=== PATIENT | male | born 1960 | race Caucasian/White ===

== ENCOUNTER 2024-06-01 23:17 | Emergency (ER) | payer MEDICARE, MEDICAID, SELFPAY ==
[2024-06-01 23:30] LABS: Glucose Point of Care 331 mg/dl (65-105)
--- NOTE | 2024-06-01 23:35 | ED.GENADULT ---
HPI - General Adult General Chief complaint: Psychiatric Symptoms Stated complaint: Confused Source: patient Mode of arrival: ambulatory Limitations: no limitations History of Present Illness HPI narrative: patient is a 63-year-old white male brought in by EMS who stated that they were called by police. Patient stated he went to his [facility] house [facility] whose Maryellen was worried about him because he had told her he was the November [facility] of and that he had [facility] [employer] tomorrow. He told her that all he had to do is write his name as the right and palate to beam air about all May 18. The police subsequently called EMS who pick patient up in the street in [place], [place] patient agreed to come in to be evaluated denies any paranoia denies drinking alcohol illicit drugs. He says he is in perfect health does not have any medical problems except for some psoriasis. His blood sugar was high by EMS he said that is because he went to the bakery and had pastries today. Denies any cough fever sore throat runny nose dizziness or lightheadedness swelling lumps or bumps problems walking talking seeing or hearing. Denies any homicidal or suicidal ideation or depression. He says a little anxious kids he wants to get out of this more emergency room and does not want stay here and wants to go home and does not want any testing done. Says he lives with his Rebekah the past year. Related Data Home Medications Medication Instructions Recorded Confirmed No Home Medications 06/01/24 06/01/24 Allergies Allergy/AdvReac Type Severity Reaction Status Date / Time No Known Allergies Allergy Verified 06/01/24 23:24 Review of Systems Review of Systems: All systems reviewed & are unremarkable except as noted in HPI and below PMFSH Comments smokes did denies alcohol or illicit drug use. Lives with his Rebekah Exam Narrative: White male patient with no apparent distress.? Head normocephalic, atraumatic.? Eyes conjunctiva pink sclera nonicteric.? Extraocular movements are intact.? Ears externally normal.? Oropharynx is clear with moist mucous membranes without exudates.? Neck is supple nontender no lymphadenopathy.? Back is nontender.? Lungs are clear.? Heart is regular rate and rhythm without murmurs gallops or rubs.? Chest wall nontender. Abdomen is soft and nontender no hepatosplenomegaly or masses no CVA tenderness no abdominal bruits.? Extremities no cyanosis clubbing or edema.? Skin is warm and dry without lesions.? the patient does have psoriatic plaques extremities. Neurological patient is alert and oriented x4.? Motor and sensory grossly intact.? Gait is normal. Medical Decision Making MDM Narrative Medical decision making narrative: Patient placed in room: room 5 ? History and physical was performed. patient states he does not want to be here and wants to go home does not want any testing done. He says he has not depressed not thinking about hurting anyone or himself he says he is anxious and just wants to get out of the emergency department. Accu-Chek was 363 Independent Historian: EMS External Source Review: Differential Dx includes but not limited to: Homicidal or suicidal ideation Medications were Reviewed: patient states takes no medications Medications given: none Independently Interpreted by me: Shared decision Making: Social Situation Impacting Patients Care: Discussed with Dr. RAPHAEL DIAGNOSIS: delusion disorder, hyperglycemia DISPOSITION : discharge home police that originally picked him up is going to drop him back to his car. CONDITION AT DISCHARGE: stable Lab Data Labs: Lab Results 06/01/24 Range/Units 23:28 POC Capillary Glucose 331 H (65-105) mg/dl Discharge Plan Discharge Clinical Impression: Delusional disorder, Hyperglycemia Patient Disposition: Home, Self-Care Condition: Stable Instructions: Nondiabetic Hyperglycemia (ED) Additional Instructions: return any problems or concerns. With your primary care provider from local list given Prescriptions: No Action No Home Medications Follow-up/Referrals: Henrietta,MD Blake [Primary Care Provider] - Time of Disposition: 23:58
[2024-06-01 23:50] VITALS: BP 190/110; PULSE 81; RESP 18; TEMP 36.4; O2SAT 99
--- NOTE | 2024-06-02 00:07 | PC.NURSE ---
Called [facility]'s Department, police who called EMS to have him sent here, to see if they could give him a ride back to his car in [facility]. Pt has been cleared by ERP. Originally dispatch said that they would not give him a ride. But then they called back a couple of minutes later and said that the officer who had sent him had a few minutes and would give the patient a ride after all.
== END 2024-06-02 00:15 | disposition home or self-care (01) ==
PROVIDERS: Emergency Provider Emergency Medicine; PCP Family Medicine
DX: F22 Delusional disorders (principal); R73.9 Hyperglycemia, unspecified
CPT/HCPCS: 82948; 99282